=== PATIENT | male | born 1995 | race African-American/Black ===

== ENCOUNTER 2025-07-01 11:04 | Emergency (ER) | payer SELFPAY ==
[~2025-07-01] VITALS: Ht 182.9 cm; Wt 73.0 kg
[2025-07-01 11:06] VITALS: O2SAT 98
[2025-07-01] MEDS ORDERED: ONDANSETRON HCL 4MG/2ML INJ IV ONE (11:30)
[2025-07-01] MEDS ORDERED: FAMOTIDINE 20MG/2ML VIAL IV ONE (11:30)
[2025-07-01] MEDS ORDERED: KETOROLAC 15MG/ML VIAL IV ONE (11:30)
[2025-07-01 11:45] LABS: BASOPHILS % 0.4 % (0.0-2.0); EOSINOPHILS % 0.3 % (0.0-5.0); HEMATOCRIT. 24.6 % (42.0-52.0); HEMOGLOBIN. 7.1 g/dL (14.0-18.0); LYMPHOCYTES % 9.3 % (20.0-50.0); MEAN PLATELET VOLUME 6.1 fl (7.4-10.4); MONOCYTES % 5.7 % (2.0-8.0); NEUTROPHILS % 84.3 % (40.0-76.0); PLATELET 842 x1000/uL (130-400); RED BLOOD CELL COUNT 3.87 mill/uL (4.7-6.1); RED CELL DISTRIBUTION WIDTH 18.1 % (11.6-14.6)
[2025-07-01 11:55] LABS: ADD RBC MORPHOLOGY YES
[2025-07-01 12:07] LABS: CREATININE 0.8 mg/dL (0.6-1.3); UREA NITROGEN BLOOD 8 mg/dL (9-23)
[2025-07-01 12:09] LABS: ASPARTATE AMINOTRANSFERASE 30 IU/L (<34)
[2025-07-01 12:10] LABS: BILIRUBIN DIRECT 0.1 mg/dL (<=3.0); BILIRUBIN TOTAL 0.4 mg/dL (0.1-1.0)
[2025-07-01 12:14] LABS: PROTEIN TOTAL 10.2 g/dL (6.0-8.3)
[2025-07-01 12:49] LABS: PLATELET ESTIMATE MARKEDLY INCREASED
[2025-07-01] MEDS ORDERED: TOPUD PO (14:09)
[2025-07-01] MEDS: MAGNESIUM/ALUMINUM HYDROXIDE/SIMETHICONE 30ML UDC PO ONE (14:14)
[2025-07-01] MEDS: ONDANSETRON HCL 4MG/2ML INJ IV SCH (14:15)
[2025-07-01] MEDS: FAMOTIDINE 20MG/2ML VIAL IV SCH (14:15)
[2025-07-01] MEDS: KETOROLAC 15MG/ML VIAL IV SCH (14:15)
[2025-07-01] MEDS: BELLADONNA ALK/PHENOBARB 16.2MG/5ML ORAL SYR PO ONE (14:33)
[2025-07-01] MEDS: VISCOUS LIDOCAINE 2% 15 ML UDC MM ONE (14:33)
[2025-07-01 14:55] VITALS: BP 117/62; PULSE 88; RESP 15; TEMP 36.8; O2SAT 98
== END 2025-07-01 15:01 | disposition home or self-care (01) ==
LOC: ER 11:04 → CANBEDREQ 14:09 → ER 15:01
DX: R10.13 Epigastric pain (principal); R42 Dizziness and giddiness
CPT/HCPCS: 80076; 80048; 83690; 85025; 36415; 76705; 93005; 96374; 96375; 99285; J1308; J1885; J2405; Z7610